=== PATIENT | male | born 1950 | race Two or more races ===

== ENCOUNTER 2017-05-30 21:17 | Inpatient (IN) | payer MEDICAID, OTHER ==
[~2017-05-30] VITALS: Ht 175.3 cm; Wt 87.3 kg
[~2017-05-30 21:17] MED LIST: LEV500T PO; METR500T PO; OXYM0.0511 NAS; TAMS0.4C36 PO
[2017-05-30] MEDS ORDERED: MORPHINE SULFATE 4 MG/ML SYR/VIAL ONE (22:49)
[2017-05-30] MEDS ORDERED: ONDANSETRON HCL 4 MG/2 ML VIAL ONE (22:50)
[2017-05-30 22:57] LABS: Basophils # (auto) 0 uL; Basophils % (auto) 0.2 % (0.0-2.0); Eosinophils # (auto) 0.1 uL; Eosinophils % (auto) 0.5 % (0.0-7.0); Hemoglobin 13.6 g/dL (13.5-17.5); Lymphocytes # (auto) 1.1 uL; Lymphocytes % (auto) 8.6 % (10.0-50.0); Mean Corpuscular Hemoglobin 33.7 pg (28.0-32.0); Mean Corpuscular Hgb Conc. 33.9 g/dL (32.0-36.0); Mean Corpuscular Volume 99.5 fL (80.0-100.0); Monocytes # (auto) 0.8 uL; Monocytes % (auto) 6.3 % (0.0-12.0); Neutrophils # (auto) 10.6 uL; Neutrophils % (auto) 84.4 % (37.0-80.0); Platelet Count (auto) 126 10^3/uL (140-450); Red Blood Cells 4.03 10^6/uL (4.5-5.90); White Blood Cell 12.5 10^3/uL (4.4-10.8)
[2017-05-30 23:00] LABS: Red Cell Distribution Width 27.2 % (11.8-14.3)
[2017-05-30] MEDS ORDERED: ONDANSETRON HCL 4 MG/2 ML VIAL IV ONE (23:00)
[2017-05-30] MEDS ORDERED: MORPHINE SULFATE 4 MG/ML SYR/VIAL IV ONE (23:00)
[2017-05-30 23:14] LABS: Alanine Aminotransferase 23 U/L (16-61); Albumin 3.6 g/dL (3.4-5.0); Amylase 66 U/L (25-115); Anion Gap 14 (5-15); Aspartate Aminotransferase 60 U/L (15-37); BUN/Creatinine Ratio 21.3; Blood Urea Nitrogen 19 mg/dL (7-18); Calcium 8.8 mg/dL (8.5-10.1); Carbon Dioxide 20 mmol/L (21-32); Chloride 105 mmol/L (98-107); GFR African American 111 mL/min; GFR Non-African American 91 mL/min; Glucose 110 mg/dL (74-106); Lipase 139 U/L (73-393); Magnesium 2.4 mg/dL (1.6-2.6); Potassium 3.1 mmol/L (3.5-5.1); Sodium 139 mmol/L (136-145)
[2017-05-30 23:15] LABS: INR 1.11 (0.9-1.15); Partial Thromboplastin Time 22.8 sec (22.64-33.71); Prothrombin Time 12.1 sec (9.37-12.3)
[2017-05-30 23:20] LABS: Alkaline Phosphatase 188 U/L (45-117); Bilirubin, Total 1.2 mg/dL (0.2-1.0); Total Protein 7.6 g/dL (6.4-8.2)
[2017-05-31] VITALS (7 sets, daily range): BP systolic 134–169; BP diastolic 70–100
[2017-05-31] MEDS ORDERED: cefTRIAXone 1GM/10ml IVPUSH 10 ML IV ONE (02:30)
[2017-05-31] MEDS ORDERED: NITROGLYCERIN 0.4 MG SL TAB SL PRN (02:30)
[2017-05-31] MEDS ORDERED: MORPHINE SULFATE 4 MG/ML SYR/VIAL IV PRN (02:30)
[2017-05-31] MEDS ORDERED: SODIUM CHLORIDE 0.9% 500 ML IV ONE (02:30)
[2017-05-31] MEDS ORDERED: POTASSIUM CHLORIDE 20 MEQ, LIDOCAINE 1% (LOCAL ANESTH.) 2 ML in SODIUM CHL 0.9% 100 ML IV ONE (02:30)
[2017-05-31] MEDS ORDERED: PANTOPRAZOLE 40 MG/10 ML VIAL IV ONE (02:30)
[2017-05-31] MEDS ORDERED: POTASSIUM CHL 20MEQ/100ML 100 ML IV ONE (02:42)
[2017-05-31] MEDS: SODIUM CHLORIDE 0.9% 1,000 ML IV SCH ×2 (02:45→14:27)
[2017-05-31] MEDS: HYDROmorphone HCL 2 MG/ML VL IV PRN ×2 (04:55→14:33)
[2017-05-31] MEDS: PANTOPRAZOLE 40 MG/10 ML VIAL IV SCH (09:39)
[2017-05-31] MEDS ORDERED: ENOXAPARIN SOD 40 MG/0.4 ML SYRINGE SC SCH (10:00)
[2017-05-31] MEDS: ONDANSETRON HCL 4 MG/2 ML VIAL IV PRN ×3 (12:02→22:26)
[2017-05-31 12:51] LABS: Urine Bacteria NONE SEEN /hpf (None Seen); Urine Blood Negative /uL (Negative); Urine Mucus FEW (None Seen); Urine Specific Gravity 1.031 (1.001-1.035); Urine WBC 1 /hpf (0 - 3)
[2017-05-31] MEDS ORDERED: CAPE1TAB11 PO (13:15)
[2017-05-31 13:18] LABS: Basophils # (auto) 0 uL; Basophils % (auto) 0.3 % (0.0-2.0); Eosinophils # (auto) 0 uL; Eosinophils % (auto) 0.4 % (0.0-7.0); Hematocrit 37.8 % (41.0-53.0); Hemoglobin 12.8 g/dL (13.5-17.5); Lymphocytes # (auto) 0.8 uL; Lymphocytes % (auto) 7.6 % (10.0-50.0); Mean Corpuscular Hemoglobin 33.7 pg (28.0-32.0); Mean Corpuscular Hgb Conc. 33.7 g/dL (32.0-36.0); Mean Corpuscular Volume 99.8 fL (80.0-100.0); Monocytes # (auto) 0.8 uL; Monocytes % (auto) 7.9 % (0.0-12.0); Neutrophils # (auto) 8.5 uL; Neutrophils % (auto) 83.8 % (37.0-80.0); Platelet Count (auto) 104 10^3/uL (140-450); Red Blood Cells 3.79 10^6/uL (4.5-5.90); White Blood Cell 10.2 10^3/uL (4.4-10.8)
[2017-05-31] MEDS ORDERED: CHLO25TA34 PO (13:21)
[2017-05-31 13:25] LABS: Red Cell Distribution Width 27.2 % (11.8-14.3)
[2017-05-31 13:32] LABS: BUN/Creatinine Ratio 25.3; Calcium 8.3 mg/dL (8.5-10.1); Magnesium 2.6 mg/dL (1.6-2.6); Potassium 3.1 mmol/L (3.5-5.1)
[2017-05-31] MEDS ORDERED: SODIUM CHL 0.9% IV ONE (16:00)
[2017-05-31] MEDS ORDERED: LIDOCAINE 1% IV ONE (16:00)
[2017-05-31] MEDS ORDERED: POTASSIUM CHLORIDE IV ONE (16:00)
[2017-05-31] MEDS: cefTRIAXone 1GM/10ml IVPUSH 10 ML IV SCH (22:04)
[2017-05-31] MEDS: MORPHINE SULFATE 4 MG/ML SYR/VIAL IV PRN (22:26)
[2017-06-01] MEDS: SODIUM CHLORIDE 0.9% 1,000 ML IV SCH ×2 (03:29→14:33)
[2017-06-01 03:50] VITALS: BP 157/98
[2017-06-01 04:59] LABS: Basophils # (auto) 0 uL; Basophils % (auto) 0.3 % (0.0-2.0); Eosinophils # (auto) 0 uL; Eosinophils % (auto) 0.1 % (0.0-7.0); Hemoglobin 13.6 g/dL (13.5-17.5); Lymphocytes # (auto) 0.7 uL; Lymphocytes % (auto) 5.8 % (10.0-50.0); Mean Corpuscular Hemoglobin 33.1 pg (28.0-32.0); Mean Corpuscular Hgb Conc. 33.2 g/dL (32.0-36.0); Mean Corpuscular Volume 99.7 fL (80.0-100.0); Monocytes % (auto) 7.7 % (0.0-12.0); Neutrophils % (auto) 86.1 % (37.0-80.0); Platelet Count (auto) 108 10^3/uL (140-450); Red Blood Cells 4.11 10^6/uL (4.5-5.90); White Blood Cell 12.8 10^3/uL (4.4-10.8)
[2017-06-01 05:05] LABS: Red Cell Distribution Width 26.4 % (11.8-14.3)
[2017-06-01] MEDS: MORPHINE SULFATE 4 MG/ML SYR/VIAL IV PRN ×4 (05:11→23:18)
[2017-06-01 05:13] LABS: INR 1.13 (0.9-1.15); Partial Thromboplastin Time 24.8 sec (22.64-33.71); Prothrombin Time 12.3 sec (9.37-12.3)
[2017-06-01 05:19] LABS: Calcium 8.3 mg/dL (8.5-10.1); Magnesium 2.8 mg/dL (1.6-2.6); Potassium 3.3 mmol/L (3.5-5.1)
[2017-06-01 05:22] LABS: Bilirubin, Total 1.3 mg/dL (0.2-1.0); Total Protein 6.6 g/dL (6.4-8.2)
[2017-06-01 08:00] VITALS: BP 153/105
[2017-06-01] MEDS: PANTOPRAZOLE 40 MG/10 ML VIAL IV SCH (09:17)
[2017-06-01] MEDS ORDERED: TPN PER PHARMACY 0 ML IV SCH (11:00)
[2017-06-01 12:00] VITALS: BP 144/100
[2017-06-01 12:54] LABS: INR 1.13 (0.9-1.15); Partial Thromboplastin Time 24.9 sec (22.64-33.71); Prothrombin Time 12.3 sec (9.37-12.3)
[2017-06-01] MEDS ORDERED: LIDOCAINE 1% HCL (LOCAL ANESTH.) INJ 20ML MDV ID ONE (13:00)
[2017-06-01] MEDS ORDERED: POTASSIUM CHL 10MEQ/100ML IV SCH (13:15)
[2017-06-01] MEDS ORDERED: POTASSIUM CHL 20MEQ/100ML 100 ML IV ONE (13:15)
[2017-06-01] MEDS: POTASSIUM CHL 20MEQ/100ML 100 ML IV SCH ×2 (14:32→15:55)
[2017-06-01 16:00] VITALS: BP 146/101
[2017-06-01] MEDS ORDERED: POTASSIUM PHOSP 22MEQ(15MMOLE) in NS 100 ML IV ONE (16:00)
[2017-06-01] MEDS: ONDANSETRON HCL 4 MG/2 ML VIAL IV PRN (17:16)
[2017-06-01] MEDS ORDERED: DEXTROSE (50%) 50ML SYRG IV SCH (18:00)
[2017-06-01] MEDS: InsuLIN REG 1unit/0.01ml Soln (100units/ml) SC SCH ×2 (18:00→23:50)
[2017-06-01] MEDS: ACCU-CHEK COMFORT CURVE STRIP VI SCH ×2 (18:01→23:50)
[2017-06-01] MEDS ORDERED: TPN PER PHARMACY IV NR ×9 (20:00)
[2017-06-01 20:10] VITALS: BP 128/95
[2017-06-01] MEDS: SODIUM CHLOR 0.9% PF (SALINE LOCK) 10ML VIAL IV SCH (21:50)
[2017-06-01] MEDS: cefTRIAXone 1GM/10ml IVPUSH 10 ML IV SCH (21:50)
[2017-06-01 23:55] VITALS: BP 153/95
[2017-06-02] MEDS: SODIUM CHLORIDE 0.9% 1,000 ML IV SCH ×2 (03:57→15:46)
[2017-06-02] MEDS: MORPHINE SULFATE 4 MG/ML SYR/VIAL IV PRN ×3 (05:12→18:20)
[2017-06-02] MEDS: InsuLIN REG 1unit/0.01ml Soln (100units/ml) SC SCH ×4 (06:00→23:59)
[2017-06-02 06:11] LABS: Basophils # (auto) 0 uL; Basophils % (auto) 0.1 % (0.0-2.0); Eosinophils # (auto) 0.1 uL; Eosinophils % (auto) 0.5 % (0.0-7.0); Hemoglobin 14.1 g/dL (13.5-17.5); Lymphocytes # (auto) 1.3 uL; Mean Corpuscular Hemoglobin 33.9 pg (28.0-32.0); Mean Corpuscular Hgb Conc. 33.7 g/dL (32.0-36.0); Mean Corpuscular Volume 100.5 fL (80.0-100.0); Monocytes # (auto) 1.3 uL; Monocytes % (auto) 9.1 % (0.0-12.0); Neutrophils # (auto) 11.8 uL; Neutrophils % (auto) 81.3 % (37.0-80.0); Platelet Count (auto) 110 10^3/uL (140-450); Red Blood Cells 4.18 10^6/uL (4.5-5.90); White Blood Cell 14.5 10^3/uL (4.4-10.8)
[2017-06-02] MEDS: ACCU-CHEK COMFORT CURVE STRIP VI SCH ×4 (06:23→23:56)
[2017-06-02 06:31] LABS: Red Cell Distribution Width 26.1 % (11.8-14.3)
[2017-06-02 06:32] LABS: Bilirubin, Total 1.1 mg/dL (0.2-1.0); Calcium 7.7 mg/dL (8.5-10.1); Magnesium 3.1 mg/dL (1.6-2.6); Phosphorus 1.4 mg/dL (2.5-4.90); Potassium 3.3 mmol/L (3.5-5.1); Pre Albumin 12.2 mg/dL (20.0-40.0); Total Protein 6.6 g/dL (6.4-8.2)
[2017-06-02] MEDS: PANTOPRAZOLE 40 MG/10 ML VIAL IV SCH (09:08)
[2017-06-02] MEDS: SODIUM CHLOR 0.9% PF (SALINE LOCK) 10ML VIAL IV SCH ×2 (09:10→22:07)
[2017-06-02] MEDS ORDERED: PROPOFOL 10 MG/ML 20 ML IV ONE (09:26)
[2017-06-02] MEDS ORDERED: ETOMIDATE (2MG/ML) 20ML VIAL IV ONE (09:37)
[2017-06-02] MEDS ORDERED: fentaNYL CITRATE 100 MCG/2 ML VL ONE (09:37)
[2017-06-02] MEDS ORDERED: fentaNYL CITRATE 10 ML ONE (09:37)
[2017-06-02] MEDS ORDERED: MIDAZOLAM HCL 1MG/1ML-2 ML VIAL ONE (09:37)
[2017-06-02] MEDS ORDERED: ROCURONIUM 10MG/ML 10ML VIAL IV ONE (09:37)
[2017-06-02] MEDS ORDERED: POTASSIUM PHOSPHATE 44 MEQ in D5W 5% 250 ML IV ONE (10:00)
[2017-06-02] MEDS ORDERED: POVIDONE IODINE 10 % TOPICAL OINT 30GM TOP ONE (10:25)
[2017-06-02] MEDS ORDERED: GLYCOPYRROLATE 0.2 MG/ML 1ML VIAL ONE (10:35)
[2017-06-02] MEDS ORDERED: NEOSTIGMINE 1 MG/ML INJ (10mg/10ML VIAL) ONE (10:35)
[2017-06-02] MEDS ORDERED: HYDROmorphone HCL 2 MG/ML VL IV PRN (11:15)
[2017-06-02] MEDS ORDERED: METOCLOPRAMIDE HCL 5MG/ml INJ 2ml VIAL IV ONE (11:15)
[2017-06-02] MEDS ORDERED: LABETALOL HCL 5 MG/ML ML 20ML VIAL IV ONE (11:55)
[2017-06-02] MEDS: LABETALOL HCL 5 MG/ML ML 20ML VIAL IV ONE ×2 (12:00→12:15)
[2017-06-02] MEDS ORDERED: POTASSIUM PHOSPHATE 22 MEQ in SODIUM CHL 0.9% 100 ML IV ONE (12:30)
[2017-06-02 15:51] VITALS: BP 147/106
[2017-06-02 19:53] VITALS: BP 134/92
[2017-06-02] MEDS ORDERED: FAT EMULSION IV NR ×9 (20:00)
[2017-06-02] MEDS ORDERED: POTASSIUM ACETATE IV NR ×9 (20:00)
[2017-06-02] MEDS ORDERED: [UNRECOGNIZED DRUG - OTHER] IV NR ×9 (20:00)
[2017-06-02] MEDS ORDERED: POTASSIUM PHOSPHATE IV NR ×9 (20:00)
[2017-06-02] MEDS: D5W/SOD CHL 0.45%/KCL 20MEQ 1,000 ML IV SCH ×2 (20:57→21:35)
[2017-06-02 22:00] VITALS: BP 145/89
[2017-06-02] MEDS: cefTRIAXone 1GM/10ml IVPUSH 10 ML IV SCH (22:45)
[2017-06-02 23:00] VITALS: BP 142/91
[2017-06-02 23:58] VITALS: BP 155/98
[2017-06-03] VITALS (7 sets, daily range): BP systolic 113–155; BP diastolic 59–94
[2017-06-03] MEDS: SODIUM CHLORIDE 0.9% 1,000 ML IV SCH (05:30)
[2017-06-03] MEDS: ACCU-CHEK COMFORT CURVE STRIP VI SCH ×3 (06:22→18:05)
[2017-06-03] MEDS: InsuLIN REG 1unit/0.01ml Soln (100units/ml) SC SCH ×3 (06:25→18:12)
[2017-06-03] MEDS: D5W/SOD CHL 0.45%/KCL 20MEQ 1,000 ML IV SCH ×2 (06:25→14:00)
[2017-06-03 06:39] LABS: Basophils # (auto) 0 uL; Eosinophils # (auto) 0 uL; Hemoglobin 11.5 g/dL (13.5-17.5); Lymphocytes # (auto) 0.9 uL
[2017-06-03 06:45] LABS: Basophils % (auto) 0.1 % (0.0-2.0); Hematocrit 34.2 % (41.0-53.0); Lymphocytes % (auto) 7.1 % (10.0-50.0); Mean Corpuscular Hemoglobin 33.5 pg (28.0-32.0); Mean Corpuscular Hgb Conc. 33.6 g/dL (32.0-36.0); Mean Corpuscular Volume 99.8 fL (80.0-100.0); Monocytes # (auto) 1.3 uL; Neutrophils % (auto) 81.8 % (37.0-80.0); Nucleated Red Blood Cells % 0.1 %; Red Blood Cells 3.43 10^6/uL (4.5-5.90); White Blood Cell 12.2 10^3/uL (4.4-10.8)
[2017-06-03 07:02] LABS: Red Cell Distribution Width 26.2 % (11.8-14.3)
[2017-06-03 07:07] LABS: Albumin 2.4 g/dL (3.4-5.0); BUN/Creatinine Ratio 25.5; Bilirubin, Total 0.8 mg/dL (0.2-1.0); Calcium 7.6 mg/dL (8.5-10.1); Magnesium 2.5 mg/dL (1.6-2.6); Phosphorus 1.4 mg/dL (2.5-4.90); Potassium 4.1 mmol/L (3.5-5.1); Total Protein 5.4 g/dL (6.4-8.2)
[2017-06-03 08:40] LABS: Platelet Count (auto) 62 10^3/uL (140-450)
[2017-06-03] MEDS: PANTOPRAZOLE 40 MG/10 ML VIAL IV SCH (09:18)
[2017-06-03] MEDS: SODIUM CHLOR 0.9% PF (SALINE LOCK) 10ML VIAL IV SCH ×2 (09:19→21:36)
[2017-06-03] MEDS ORDERED: SODIUM PHOSP 40 MEQ in D5W 5% 250 ML IV ONE (10:00)
[2017-06-03] MEDS: MORPHINE SULFATE 4 MG/ML SYR/VIAL IV PRN ×2 (11:10→18:29)
[2017-06-03] MEDS ORDERED: TPN PER PHARMACY IV NR ×9 (20:00)
[2017-06-03] MEDS: metroNIDAZOLE 500MG/100ML 100 ML IV SCH (21:35)
[2017-06-03] MEDS: cefTRIAXone 1GM/10ml IVPUSH 10 ML IV SCH (21:36)
[2017-06-04] VITALS: BP 133/89
[2017-06-04] MEDS: ACCU-CHEK COMFORT CURVE STRIP VI SCH ×4 (00:04→17:43)
[2017-06-04] MEDS: ONDANSETRON HCL 4 MG/2 ML VIAL IV PRN ×2 (00:04→17:43)
[2017-06-04] MEDS: InsuLIN REG 1unit/0.01ml Soln (100units/ml) SC SCH ×4 (00:04→18:06)
[2017-06-04] MEDS: D5W/SOD CHL 0.45%/KCL 20MEQ 1,000 ML IV SCH ×4 (00:04→19:47)
[2017-06-04] MEDS: MORPHINE SULFATE 4 MG/ML SYR/VIAL IV PRN ×4 (00:05→21:38)
[2017-06-04 04:00] VITALS: BP 144/84
[2017-06-04 05:37] LABS: Basophils # (auto) 0 uL; Basophils % (auto) 0.2 % (0.0-2.0); Eosinophils # (auto) 0.3 uL; Monocytes # (auto) 1.1 uL; Neutrophils # (auto) 7.5 uL
[2017-06-04 05:39] LABS: Hematocrit 33.7 % (41.0-53.0); Hemoglobin 11.5 g/dL (13.5-17.5); Lymphocytes % (auto) 10.4 % (10.0-50.0); Mean Corpuscular Hemoglobin 34.2 pg (28.0-32.0); Mean Corpuscular Hgb Conc. 34.2 g/dL (32.0-36.0); Mean Corpuscular Volume 99.9 fL (80.0-100.0); Monocytes % (auto) 10.8 % (0.0-12.0); Neutrophils % (auto) 75.6 % (37.0-80.0); Platelet Count (auto) 57 10^3/uL (140-450); Red Blood Cells 3.37 10^6/uL (4.5-5.90)
[2017-06-04 05:51] LABS: Red Cell Distribution Width 26.4 % (11.8-14.3)
[2017-06-04 06:22] LABS: Magnesium 2.1 mg/dL (1.6-2.6)
[2017-06-04] MEDS: metroNIDAZOLE 500MG/100ML 100 ML IV SCH ×3 (06:24→21:37)
[2017-06-04 06:44] LABS: Bilirubin, Total 1.4 mg/dL (0.2-1.0); Phosphorus 2.5 mg/dL (2.5-4.90); Potassium 4.6 mmol/L (3.5-5.1); Total Protein 5.6 g/dL (6.4-8.2)
[2017-06-04 06:45] LABS: Albumin 2.4 g/dL (3.4-5.0); Calcium 7.6 mg/dL (8.5-10.1)
[2017-06-04 08:00] VITALS: BP 149/91
[2017-06-04] MEDS ORDERED: MORPHINE SULFATE 4 MG/ML SYR/VIAL IV PRN (10:00)
[2017-06-04] MEDS: PANTOPRAZOLE 40 MG/10 ML VIAL IV SCH (10:23)
[2017-06-04] MEDS: SODIUM CHLOR 0.9% PF (SALINE LOCK) 10ML VIAL IV SCH ×2 (10:23→21:38)
[2017-06-04 12:00] VITALS: BP 133/93
[2017-06-04 16:00] VITALS: BP 126/87
[2017-06-04] MEDS: ENOXAPARIN SOD 40 MG/0.4 ML SYRINGE SC SCH (17:18)
[2017-06-04] MEDS ORDERED: SODIUM CHLORIDE 0.9% 500 ML IV ONE (18:00)
[2017-06-04] MEDS ORDERED: ALBUMIN 25% 50 ML IV ONE (18:00)
[2017-06-04] MEDS ORDERED: SODIUM CHLORIDE 0.9% 1,000 ML IV ONE (18:15)
[2017-06-04 20:00] VITALS: BP 123/67
[2017-06-04] MEDS ORDERED: TPN PER PHARMACY IV NR ×10 (20:00)
[2017-06-04] MEDS ORDERED: ACETAMINOPHEN 325 MG TAB PO ONE (20:40)
[2017-06-04] MEDS ORDERED: chlorproMAZINE HCL 25 MG TAB ONE (20:40)
[2017-06-04 21:25] LABS: Urine Bacteria NONE SEEN /hpf (None Seen); Urine Blood 2+ /uL (Negative); Urine Specific Gravity 1.002 (1.001-1.035); Urine WBC <1 /hpf (0 - 3)
[2017-06-04] MEDS: cefTRIAXone 1GM/10ml IVPUSH 10 ML IV SCH (21:37)
[2017-06-05] VITALS (7 sets, daily range): BP systolic 97–130; BP diastolic 59–88
[2017-06-05] MEDS: ACCU-CHEK COMFORT CURVE STRIP VI SCH ×4 (00:23→17:49)
[2017-06-05] MEDS: InsuLIN REG 1unit/0.01ml Soln (100units/ml) SC SCH ×4 (00:31→17:49)
[2017-06-05] MEDS: D5W/SOD CHL 0.45%/KCL 20MEQ 1,000 ML IV SCH ×3 (03:33→20:41)
[2017-06-05] MEDS: metroNIDAZOLE 500MG/100ML 100 ML IV SCH ×3 (05:34→21:36)
[2017-06-05 06:12] LABS: BUN/Creatinine Ratio 17.5; Bilirubin, Total 1.4 mg/dL (0.2-1.0); Magnesium 2.1 mg/dL (1.6-2.6); Phosphorus 2.6 mg/dL (2.5-4.90); Potassium 3.5 mmol/L (3.5-5.1); Pre Albumin 5.1 mg/dL (20.0-40.0); Total Protein 4.9 g/dL (6.4-8.2)
[2017-06-05] MEDS: MORPHINE SULFATE 4 MG/ML SYR/VIAL IV PRN ×2 (08:35→21:25)
[2017-06-05] MEDS: SODIUM CHLOR 0.9% PF (SALINE LOCK) 10ML VIAL IV SCH ×2 (09:27→21:36)
[2017-06-05] MEDS: ENOXAPARIN SOD 40 MG/0.4 ML SYRINGE SC SCH (09:46)
[2017-06-05] MEDS: PANTOPRAZOLE 40 MG/10 ML VIAL IV SCH (09:46)
[2017-06-05] MEDS: chlorproMAZINE HCL 25 MG TAB PO PRN (09:46)
[2017-06-05] MEDS: ACETAMINOPHEN 325 MG TAB PO PRN ×2 (11:46→19:42)
[2017-06-05] MEDS ORDERED: TPN PER PHARMACY IV NR ×12 (20:00)
[2017-06-05] MEDS: cefTRIAXone 1GM/10ml IVPUSH 10 ML IV SCH (21:36)
[2017-06-06] MEDS: ACCU-CHEK COMFORT CURVE STRIP VI SCH ×4 (00:06→17:48)
[2017-06-06] MEDS: InsuLIN REG 1unit/0.01ml Soln (100units/ml) SC SCH ×4 (00:06→17:49)
[2017-06-06] MEDS: chlorproMAZINE HCL 25 MG TAB PO PRN (01:19)
[2017-06-06 03:59] VITALS: BP 112/65
[2017-06-06] MEDS: D5W/SOD CHL 0.45%/KCL 20MEQ 1,000 ML IV SCH (05:04)
[2017-06-06 05:46] LABS: Basophils # (auto) 0 uL; Eosinophils # (auto) 0.4 uL; Hemoglobin 9.9 g/dL (13.5-17.5); White Blood Cell 9.8 10^3/uL (4.4-10.8)
[2017-06-06 05:50] LABS: Basophils % (auto) 0.4 % (0.0-2.0); Eosinophils % (auto) 4.5 % (0.0-7.0); Hematocrit 28.5 % (41.0-53.0); Lymphocytes # (auto) 0.6 uL; Lymphocytes % (auto) 6.2 % (10.0-50.0); Mean Corpuscular Hemoglobin 34.4 pg (28.0-32.0); Mean Corpuscular Hgb Conc. 34.6 g/dL (32.0-36.0); Mean Corpuscular Volume 99.3 fL (80.0-100.0); Monocytes # (auto) 1.9 uL; Neutrophils # (auto) 6.8 uL; Neutrophils % (auto) 69.5 % (37.0-80.0); Nucleated Red Blood Cells % 0.1 %; Platelet Count (auto) 52 10^3/uL (140-450); Red Blood Cells 2.87 10^6/uL (4.5-5.90)
[2017-06-06 05:53] LABS: Albumin 1.8 g/dL (3.4-5.0); BUN/Creatinine Ratio 16.4; Bilirubin, Total 1.4 mg/dL (0.2-1.0); Calcium 6.8 mg/dL (8.5-10.1); Magnesium 2.2 mg/dL (1.6-2.6); Phosphorus 2.2 mg/dL (2.5-4.90); Potassium 3.3 mmol/L (3.5-5.1); Total Protein 4.8 g/dL (6.4-8.2)
[2017-06-06 06:02] LABS: Monocytes % (auto) 19.4 % (0.0-12.0); Red Cell Distribution Width 24.7 % (11.8-14.3)
[2017-06-06] MEDS: metroNIDAZOLE 500MG/100ML 100 ML IV SCH ×3 (06:15→20:57)
[2017-06-06 08:00] VITALS: BP 102/71
[2017-06-06] MEDS: SODIUM CHLOR 0.9% PF (SALINE LOCK) 10ML VIAL IV SCH ×2 (09:43→22:00)
[2017-06-06] MEDS: MORPHINE SULFATE 4 MG/ML SYR/VIAL IV PRN (09:43)
[2017-06-06] MEDS: ENOXAPARIN SOD 40 MG/0.4 ML SYRINGE SC SCH (09:43)
[2017-06-06] MEDS: PANTOPRAZOLE 40 MG/10 ML VIAL IV SCH (09:43)
[2017-06-06 11:55] VITALS: BP 102/59
[2017-06-06] MEDS: FLUCONAZOLE 200MG/100ML 100 ML IV SCH (12:50)
[2017-06-06] MEDS: PIPERACILLIN-TAZOB 3.375GM 50 ML IV SCH ×2 (12:50→17:48)
[2017-06-06] MEDS: POTASSIUM CHL 20MEQ/100ML 100 ML IV SCH ×2 (12:50→15:41)
[2017-06-06] MEDS ORDERED: VANCOMYCIN PER PHARMACY 0 MG IV SCH (15:30)
[2017-06-06] MEDS: SODIUM CHLORIDE 0.9% 1,000 ML IV SCH ×2 (15:41→23:30)
[2017-06-06] MEDS ORDERED: POTASSIUM CHL 20MEQ/100ML 100 ML IV ONE (15:45)
[2017-06-06 15:59] VITALS: BP 114/68
[2017-06-06] MEDS: VANCOMYCIN 1,250 MG in D5W 5% 250 ML IV SCH (17:00)
[2017-06-06 20:00] VITALS: BP 101/61
[2017-06-06] MEDS ORDERED: TPN PER PHARMACY IV NR ×14 (20:00)
[2017-06-07] VITALS: BP 101/61
[2017-06-07] MEDS: PIPERACILLIN-TAZOB 3.375GM 50 ML IV SCH ×5 (00:14→23:36)
[2017-06-07] MEDS: ACCU-CHEK COMFORT CURVE STRIP VI SCH ×5 (00:26→23:35)
[2017-06-07] MEDS: InsuLIN REG 1unit/0.01ml Soln (100units/ml) SC SCH ×5 (00:26→23:36)
[2017-06-07 04:00] VITALS: BP 92/61
[2017-06-07] MEDS: VANCOMYCIN 1,250 MG in D5W 5% 250 ML IV SCH ×2 (05:00→17:10)
[2017-06-07 05:48] LABS: Hematocrit 25.4 % (41.0-53.0); Platelet Count (auto) 61 10^3/uL (140-450); Red Blood Cells 2.55 10^6/uL (4.5-5.90)
[2017-06-07 05:51] LABS: Hemoglobin 8.6 g/dL (13.5-17.5); Mean Corpuscular Hemoglobin 33.7 pg (28.0-32.0); Mean Corpuscular Hgb Conc. 33.9 g/dL (32.0-36.0); Mean Corpuscular Volume 99.4 fL (80.0-100.0); White Blood Cell 11.3 10^3/uL (4.4-10.8)
[2017-06-07] MEDS: metroNIDAZOLE 500MG/100ML 100 ML IV SCH (06:08)
[2017-06-07 06:30] LABS: Band Neutrophils % (manual) 0
[2017-06-07 06:31] LABS: Basophils % (manual) 0 (0.0-2.0); Blast Cells 0; Metamyelocytes % 0; Myelocytes % 0; Promyelocytes % 0; Reactive Lymphocytes 0
[2017-06-07 06:34] LABS: Alanine Aminotransferase 16 U/L (16-61); Albumin 1.5 g/dL (3.4-5.0); Alkaline Phosphatase 107 U/L (45-117); Anion Gap 10 (5-15); Aspartate Aminotransferase 95 U/L (15-37); BUN/Creatinine Ratio 14.5; Blood Urea Nitrogen 10 mg/dL (7-18); Calcium 6.4 mg/dL (8.5-10.1); Carbon Dioxide 21 mmol/L (21-32); Chloride 105 mmol/L (98-107); GFR African American 148 mL/min; GFR Non-African American 123 mL/min; Glucose 140 mg/dL (74-106); Magnesium 2.1 mg/dL (1.6-2.6); Phosphorus 1.7 mg/dL (2.5-4.90); Potassium 3.1 mmol/L (3.5-5.1); Pre Albumin < 3.0 mg/dL (20.0-40.0); Sodium 136 mmol/L (136-145); Total Protein 4.5 g/dL (6.4-8.2); Triglycerides 26 mg/dL (< 150)
[2017-06-07 07:03] LABS: Eosinophils % (manual) 3 (0-7); Lymphocytes % (manual) 9 (10.0-50.0); Monocytes % (manual) 13 (0-12)
[2017-06-07] MEDS: SODIUM CHLORIDE 0.9% 1,000 ML IV SCH ×3 (07:30→22:07)
[2017-06-07 07:55] VITALS: BP 109/65
[2017-06-07] MEDS ORDERED: CALCIUM GLUC 4.65meq/50ml D5AE 50 ML IV ONE (08:45)
[2017-06-07] MEDS ORDERED: POTASSIUM CHL 20MEQ/100ML 100 ML IV ONE (09:00)
[2017-06-07] MEDS ORDERED: CALCIUM GLUC IV ONE (09:00)
[2017-06-07] MEDS ORDERED: SODIUM CHL 0.9% IV ONE (09:00)
[2017-06-07] MEDS: ENOXAPARIN SOD 40 MG/0.4 ML SYRINGE SC SCH (10:32)
[2017-06-07] MEDS: PANTOPRAZOLE 40 MG/10 ML VIAL IV SCH (10:32)
[2017-06-07] MEDS: SODIUM CHLOR 0.9% PF (SALINE LOCK) 10ML VIAL IV SCH ×2 (10:32→22:07)
[2017-06-07] MEDS: FLUCONAZOLE 200MG/100ML 100 ML IV SCH (10:32)
[2017-06-07 11:55] VITALS: BP 124/63
[2017-06-07] MEDS ORDERED: POTASSIUM PHOSPHATE 44 MEQ in D5W 5% 250 ML IV ONE (12:00)
[2017-06-07 15:53] VITALS: BP 123/75
[2017-06-07] MEDS: MORPHINE SULFATE 4 MG/ML SYR/VIAL IV PRN (18:37)
[2017-06-07 19:50] VITALS: BP 142/86
[2017-06-07] MEDS ORDERED: TPN PER PHARMACY IV NR ×11 (20:00)
[2017-06-08] VITALS: BP 121/89
[2017-06-08 04:00] VITALS: BP 138/83
[2017-06-08] MEDS: PIPERACILLIN-TAZOB 3.375GM 50 ML IV SCH ×4 (05:42→23:42)
[2017-06-08] MEDS: ACCU-CHEK COMFORT CURVE STRIP VI SCH ×4 (05:45→23:47)
[2017-06-08] MEDS: InsuLIN REG 1unit/0.01ml Soln (100units/ml) SC SCH ×4 (05:46→23:48)
[2017-06-08 07:55] LABS: Albumin 1.5 g/dL (3.4-5.0); Bilirubin, Total 1.1 mg/dL (0.2-1.0); Calcium 7.1 mg/dL (8.5-10.1); Magnesium 2.1 mg/dL (1.6-2.6); Phosphorus 2.2 mg/dL (2.5-4.90); Potassium 3.3 mmol/L (3.5-5.1); Total Protein 4.9 g/dL (6.4-8.2)
[2017-06-08 08:00] VITALS: BP 112/70
[2017-06-08] MEDS: FLUCONAZOLE 200MG/100ML 100 ML IV SCH (09:02)
[2017-06-08] MEDS: ENOXAPARIN SOD 40 MG/0.4 ML SYRINGE SC SCH (09:02)
[2017-06-08] MEDS: PANTOPRAZOLE 40 MG/10 ML VIAL IV SCH (09:03)
[2017-06-08] MEDS: SODIUM CHLOR 0.9% PF (SALINE LOCK) 10ML VIAL IV SCH ×2 (09:04→21:22)
[2017-06-08 09:53] LABS: Basophils # (auto) 0.1 uL; Basophils % (auto) 0.7 % (0.0-2.0); Eosinophils # (auto) 0.7 uL; Hematocrit 25.9 % (41.0-53.0); Hemoglobin 8.6 g/dL (13.5-17.5); Lymphocytes % (auto) 7.5 % (10.0-50.0); Mean Corpuscular Hemoglobin 32.8 pg (28.0-32.0); Mean Corpuscular Volume 99.3 fL (80.0-100.0); Monocytes # (auto) 1.9 uL; Monocytes % (auto) 14.2 % (0.0-12.0); Neutrophils # (auto) 9.6 uL; Neutrophils % (auto) 72.6 % (37.0-80.0); Nucleated Red Blood Cells % 0.1 %; Platelet Count (auto) 78 10^3/uL (140-450); Red Blood Cells 2.61 10^6/uL (4.5-5.90); White Blood Cell 13.2 10^3/uL (4.4-10.8)
[2017-06-08 10:03] LABS: Red Cell Distribution Width 25.1 % (11.8-14.3)
[2017-06-08] MEDS ORDERED: VANCOMYCIN 1,250 MG in D5W 5% 250 ML IV SCH (10:30)
[2017-06-08] MEDS ORDERED: SODIUM CHLORIDE 0.9% 1,000 ML IV SCH (10:45)
[2017-06-08] MEDS ORDERED: POTASSIUM CHL 20MEQ/100ML 100 ML IV ONE (11:00)
[2017-06-08] MEDS ORDERED: POTASSIUM PHOSPHATE 22 MEQ in SODIUM CHL 0.9% 100 ML IV ONE (11:00)
[2017-06-08 12:00] VITALS: BP 116/70
[2017-06-08] MEDS: MORPHINE SULFATE 4 MG/ML SYR/VIAL IV PRN (16:16)
[2017-06-08] MEDS: ONDANSETRON HCL 4 MG/2 ML VIAL IV PRN (16:17)
[2017-06-08 16:24] VITALS: BP 123/69
[2017-06-08] MEDS ORDERED: TPN PER PHARMACY IV NR ×11 (20:00)
[2017-06-08 22:00] VITALS: BP 122/72
[2017-06-09] MEDS: MORPHINE SULFATE 4 MG/ML SYR/VIAL IV PRN (02:11)
[2017-06-09 05:00] VITALS: BP 126/75
[2017-06-09] MEDS: PIPERACILLIN-TAZOB 3.375GM 50 ML IV SCH ×3 (05:48→18:00)
[2017-06-09] MEDS: InsuLIN REG 1unit/0.01ml Soln (100units/ml) SC SCH ×3 (05:48→18:00)
[2017-06-09] MEDS: ACCU-CHEK COMFORT CURVE STRIP VI SCH ×3 (05:48→18:00)
[2017-06-09 07:27] LABS: Basophils # (auto) 0.2 uL; Basophils % (auto) 0.8 % (0.0-2.0); Eosinophils # (auto) 0.9 uL; Eosinophils % (auto) 4.1 % (0.0-7.0); Hematocrit 31.4 % (41.0-53.0); Hemoglobin 10.4 g/dL (13.5-17.5); Lymphocytes # (auto) 2.3 uL; Lymphocytes % (auto) 10.4 % (10.0-50.0); Mean Corpuscular Hemoglobin 32.9 pg (28.0-32.0); Mean Corpuscular Hgb Conc. 33.2 g/dL (32.0-36.0); Mean Corpuscular Volume 99.1 fL (80.0-100.0); Monocytes # (auto) 2.7 uL; Monocytes % (auto) 12.2 % (0.0-12.0); Neutrophils # (auto) 15.8 uL; Neutrophils % (auto) 72.5 % (37.0-80.0); Platelet Count (auto) 149 10^3/uL (140-450); Red Blood Cells 3.17 10^6/uL (4.5-5.90); White Blood Cell 21.9 10^3/uL (4.4-10.8)
[2017-06-09 07:30] LABS: Red Cell Distribution Width 24.8 % (11.8-14.3)
[2017-06-09 07:32] LABS: Albumin 1.9 g/dL (3.4-5.0); BUN/Creatinine Ratio 16.2; Bilirubin, Total 1.5 mg/dL (0.2-1.0); Calcium 7.4 mg/dL (8.5-10.1); Magnesium 2.6 mg/dL (1.6-2.6); Phosphorus 2.8 mg/dL (2.5-4.90); Potassium 3.7 mmol/L (3.5-5.1); Total Protein 6.2 g/dL (6.4-8.2)
[2017-06-09 08:00] VITALS: BP 111/67
[2017-06-09] MEDS: FLUCONAZOLE 200MG/100ML 100 ML IV SCH (10:02)
[2017-06-09] MEDS: SODIUM CHLOR 0.9% PF (SALINE LOCK) 10ML VIAL IV SCH (10:03)
[2017-06-09] MEDS: ENOXAPARIN SOD 40 MG/0.4 ML SYRINGE SC SCH (10:03)
[2017-06-09] MEDS ORDERED: CEPH-37 PO (15:22)
[2017-06-09] MEDS ORDERED: FLUC200T35 PO (15:22)
[2017-06-09] MEDS ORDERED: SACC1CAP3 PO (15:22)
[2017-06-09] MEDS ORDERED: METR500T PO (15:22)
[2017-06-09 17:00] VITALS: BP 136/84
[2017-06-09] MEDS ORDERED: TPN PER PHARMACY IV NR ×10 (20:00)
== END 2017-06-09 19:37 | disposition home health service (06) | DRG 221 ==
LOC: ER 21:17 → TELE 21:18 → DOU IN ICU 05-31 04:05 → TELE-EAST 06-08 16:18
PROVIDERS: ADMIT Nurse Practitioner; ATTEND Internal Medicine
PROC: 0WJP0ZZ Inspection of Gastrointestinal Tract, Open Approach (ICD-10-PCS; 2017-06-02)
PROC: 0D1N0Z4 Bypass Sigmoid Colon to Cutaneous, Open Approach (ICD-10-PCS; principal; 2017-06-02 08:49)
PROC: 0D9680Z Drainage of Stomach with Drainage Device, Via Natural or Artificial Opening Endoscopic (ICD-10-PCS; 2017-06-02 08:49)
PROC: 02H633Z Insertion of Infusion Device into Right Atrium, Percutaneous Approach (ICD-10-PCS; 2017-06-03)
DX: C18.9 Malignant neoplasm of colon, unspecified (principal); K56.2 Volvulus; C78.7 Secondary malignant neoplasm of liver and intrahepatic bile duct; K56.691 Other complete intestinal obstruction; K56.609 Unspecified intestinal obstruction, unspecified as to partial versus complete obstruction; E83.39 Other disorders of phosphorus metabolism; E88.09 Other disorders of plasma-protein metabolism, not elsewhere classified; Z93.3 Colostomy status; E87.6 Hypokalemia; N40.1 Benign prostatic hyperplasia with lower urinary tract symptoms; Z80.42 Family history of malignant neoplasm of prostate; Z82.49 Family history of ischemic heart disease and other diseases of the circulatory system; Z83.3 Family history of diabetes mellitus; Z85.118 Personal history of other malignant neoplasm of bronchus and lung; Z66 Do not resuscitate
CPT/HCPCS: 36415; 36569; 71045; 74176; 76775; 80048; 80053; 80202; 81001; 82040; 82150; 82962; 83036; 83690; 83735; 84100; 84478; 84484; 85007; 85025; 85027; 85610; 85730; 86850; 86900; 86901; 87040; 87081; 87086; 87205; 93005; 93306; 94761; 96361; 96365; 96375; C9113; J0610; J1450; J1815; J2001; J2250; J2405; J2543; J2704; J3480; J3490; J7060; J7131; Q0161